=== PATIENT | male | born 2000 | race Asian ===

== ENCOUNTER 2020-01-11 01:06 | Emergency (ER) | payer OTHER ==
[2020-01-11 01:15] VITALS: BMI 27.9
--- NOTE | 2020-01-11 01:47 | PDOC ---
History of Present Illness - General Chief Complaint: Pain Stated Complaint: R SIDED ABD PAIN Time Seen by Provider: 01/11/20 01:46 History Source: Patient Exam Limitations: No Limitations - History of Present Illness Initial Comments: 01/11/20 02:22 19yM w PMHx depression, anxiety presenting w 1d persistent mild RLQ pain worse w urination. Not relieved w tylenol. Denies fever, cough, n/v, chest pain, SOB, diarrhea/constipation. Past History - Medical History Allergies/Adverse Reactions: Allergies Allergy/AdvReac Type Severity Reaction Status Date / Time No Known Allergies Allergy Verified 01/11/20 01:14 Home Medications: Ambulatory Orders No Home Medications 0 dose .ROUTE UTDICT 11/02/13 COPD: No Psychiatric Problems: Yes (anxiety, depression) - Immunization History Immunization Up to Date: Yes - Psycho-Social/Smoking History Smoking Status: No Smoking History: Never smoked Number of Cigarettes Smoked Daily: 0 - Substance Abuse Hx (Audit-C & DAST Scrn) How often the patient has a drink containing alcohol: Never Score: In Men: 4 or > Positive; In Women: 3 or > Positive: 0 Screen Result (Pos requires Nsg. Audit-10AR): Negative Review of Systems - Review of Systems Constitutional: No: Chills, Fever HEENTM: No: Eye Pain, Nose Congestion Respiratory: No: Cough, Shortness of Breath Cardiac (ROS): No: Chest Pain, Palpitations ABD/GI: No: Constipated, Diarrhea, Nausea, Vomiting : No: Burning, Flank Pain Musculoskeletal: No: Back Pain, Joint Pain Integumentary: No: Bruising, Flushing Neurological: No: Headache, Seizure Psychiatric: No: Anxiety, Depression Endocrine: No: Intolerance to Cold, Intolerance to Heat Hematologic/Lymphatic: No: Anemia, Blood Clots *Physical Exam - Vital Signs Last Vital Signs Temp Pulse Resp BP Pulse Ox 98.4 F 90 18 137/79 98 01/11/20 01:11 01/11/20 01:11 01/11/20 01:11 01/11/20 01:11 01/11/20 01:11 - Physical Exam General Appearance: Yes: Nourished, Appropriately Dressed, Mild Distress HEENT: positive: EOMI, JOSELITO, Normal Voice, Hearing Grossly Normal. negative: Scleral Icterus (R), Scleral Icterus (L) Respiratory/Chest: positive: Lungs Clear, Normal Breath Sounds. negative: Chest Tender, Respiratory Distress Cardiovascular: positive: Regular Rhythm, Regular Rate, S1, S2. negative: Edema, Murmur Gastrointestinal/Abdominal: positive: Normal Bowel Sounds, Tender (mild RLQ), Flat, Soft. negative: Organomegaly, Guarding, Rebound Male Genitalia: positive: normal genitalia. negative: testicular tenderness, testicular mass, hernia Musculoskeletal: negative: CVA Tenderness (R), CVA Tenderness (L) Integumentary: positive: Normal Color, Warm. negative: Dry Neurologic: positive: Fully Oriented, Alert, Normal Mood/Affect, Normal Response ED Treatment Course - LABORATORY CBC & Chemistry Diagram: 01/11/20 02:16 01/11/20 02:16 Medical Decision Making - Medical Decision Making 01/11/20 02:24 19yM w PMHx depression, anxiety presenting w 1d persistent mild RLQ pain worse w urination. Likely MSK pain. Low concern for testicular pathology (normal exam) vs UTI (clean) vs kidney stone (no hematuria) vs appendicitis (no WBC count) Given tylenol, toradol w pain relief. DC home w PCP f/u, supportive care Discharge - Discharge Information Problems reviewed: Yes Clinical Impression/Diagnosis: RLQ abdominal pain Condition: Improved Disposition: HOME - Follow up/Referral Referrals: Niranjan Christianson MD [Primary Care Provider] - - Patient Discharge Instructions Patient Printed Discharge Instructions: DI for Abdominal Pain-Adult Additional Instructions: Your workup did not show anything concerning Take tylenol or ibuprofen for your pain Please follow up with your primary care doctor Come back to the ED for worsening pain, persistent vomiting, or fevers - Post Discharge Activity
--- NOTE | 2020-01-11 01:51 | PDOC ---
Attending Attestation - Resident Resident Name: Ronnell Bauer - HPI HPI: 01/11/20 04:13 Pt presents to the ED complaining of RLQ pain, without fever, nausea or vomiting. patient has been tolerating his normal PO diet, and having normal bowel movements. No prior history of abdominal surgeries. - Physicial Exam PE: 01/11/20 04:19 Agree with resident exam. Patient is well appearing and in no acute distress. abdomen is soft, non tender, non distended without guarding or rebound. - Medical Decision Making 01/11/20 04:22 Pt presents to the ED complaining of RLQ pain. No abdominal tenderness on exam. Labs are within normal limits. Given that the patient is non tender, appendicitis is less likely. Will hold of on CT for now. Patient advised to return immediately to the ED for worsening symptoms. Discharge - Discharge Information Problems reviewed: Yes Clinical Impression/Diagnosis: RLQ abdominal pain Condition: Improved Disposition: HOME - Follow up/Referral Referrals: Niranjan Christianson MD [Primary Care Provider] - - Patient Discharge Instructions Patient Printed Discharge Instructions: DI for Abdominal Pain-Adult Additional Instructions: Your workup did not show anything concerning Take tylenol or ibuprofen for your pain Please follow up with your primary care doctor Come back to the ED for worsening pain, persistent vomiting, or fevers - Post Discharge Activity
[2020-01-11] MEDS ORDERED: ACETAMINOPHEN 500 MG TABLET (FP) PO ONE (01:56)
[2020-01-11] MEDS ORDERED: ACETAMINOPHEN 325 MG TABLET (FP) ONE (02:37)
[2020-01-11 02:41] LABS: BASO % 0.5 % (0-2.0); HEMATOCRIT 42.3 % (35.4-49); HEMOGLOBIN 14.5 GM/dL (11.7-16.9); LYMPH % 33.4 % (8-40); MCH 29.9 pg (25.7-33.7); MCHC 34.2 g/dl (32.0-35.9); MEAN CELL VOLUME 87.3 fl (80-96); MEAN PLT VOLUME 9.4 fl (7.5-11.1); MONO % 5.2 % (3.8-10.2); NEUT % 57.9 % (42.8-82.8); PLATELET COUNT 226 K/MM3 (134-434); RBC 4.84 M/mm3 (4.00-5.60); RDW 13.7 % (11.9-15.9); WHITE BLOOD COUNT 9.3 K/mm3 (4.0-10.0)
[2020-01-11 02:53] LABS: URINE APPEARANCE CLEAR; URINE BILIRUBIN NEGATIVE (NEGATIVE); URINE COLOR YELLOW; URINE GLUCOSE (UA) NEGATIVE (NEGATIVE); URINE KETONE TRACE (NEGATIVE); URINE LEUK ESTERASE NEGATIVE (NEGATIVE); URINE NITRITE NEGATIVE (NEGATIVE); URINE PROTEIN NEGATIVE (NEGATIVE)
[2020-01-11 03:13] LABS: ALBUMIN 4.1 g/dl (3.4-5.0); BILIRUBIN,TOTAL 0.4 mg/dL (0.2-1); CALCIUM 9.2 mg/dL (8.5-10.1); POTASSIUM 4.1 mmol/L (3.5-5.1); TOT PROT 8.2 g/dl (6.4-8.2)
[2020-01-11] MEDS ORDERED: KETOROLAC TROMETHAMINE 30 MG/1 ML VIAL IM ONE (03:52)
[2020-01-11] MEDS ORDERED: KETOROLAC TROMETHAMINE 30 MG/1 ML VIAL ONE (03:56)
[2020-01-11 04:51] VITALS: BP 119/78; PULSE 69; TEMP 97.7
== END 2020-01-11 04:51 | disposition home or self-care (01) ==
LOC: JER 01:06
PROC: 3E0233Z Introduction of Anti-inflammatory into Muscle, Percutaneous Approach (ICD-10-PCS; principal; 2020-01-11)
DX: R10.31 Right lower quadrant pain (principal)
CPT/HCPCS: 36415; 80053; 81003; 83690; 85025; 87086; 99285-25

== ENCOUNTER 2023-01-08 23:40 | Emergency (ER) | payer OTHER ==
[2023-01-08 23:44] VITALS: BP 121/78; PULSE 95; RESP 18; TEMP 97.5; BMI 22.2
== END 2023-01-09 03:31 | disposition left against medical advice (07) ==
LOC: JER 23:40
DX: R11.0 Nausea (principal); F41.9 Anxiety disorder, unspecified
CPT/HCPCS: 99281-25